=== PATIENT | female | born 1965 | race Caucasian/White ===

== ENCOUNTER → 2019-04-25 | Outpatient (REF) ==
[~2019-04-25] MED LIST: SIMV20TA2 PO
== END ==
LOC: M LAB LCGH 17:20
PROVIDERS: ATTEND Surgery
DX: D17.22 Benign lipomatous neoplasm of skin and subcutaneous tissue of left arm (principal)

== ENCOUNTER → 2020-08-02 | Outpatient (CLI) | payer BC ==
[~2020-08-02] MED LIST changes: -SIMV20TA2 PO; +SIMV20TA22 PO
--- NOTE | 2020-08-02 11:04 | REP ---
INDICATION: PAIN RT LOWER LEG, R/O DVT COMPARISON: None. TECHNIQUE: Real time compression and duplex Doppler interrogation of the right lower extremity deep venous system is performed. FINDINGS: The right common femoral, superficial femoral and popliteal veins are fully compressible with transducer pressure and demonstrate normal spontaneous and phasic flow, without evidence of deep venous thrombosis. IMPRESSION: No evidence of deep venous thrombosis of the right lower extremity femoral popliteal venous system. <Electronically signed by Clifford Camp > 08/02/20 1100
== END ==
LOC: M RAD 10:26
PROVIDERS: ATTEND Physician Assistant Surgical
DX: M79.662 Pain in left lower leg (principal)

== ENCOUNTER → 2021-08-19 | Outpatient (CLI) | payer BC | LOC: M WHC 07:42 | PROVIDERS: ATTEND Internal Medicine Endocrinology, Diabetes & Metabolism | DX: M85.851 Other specified disorders of bone density and structure, right thigh (principal); M85.852 Other specified disorders of bone density and structure, left thigh ==